=== PATIENT | male | born 1965 | race Two or more races ===

== ENCOUNTER 2024-05-17 11:24 | Emergency (ER) | payer OTHER ==
[~2024-05-17] VITALS: Ht 170.2 cm; Wt 79.5 kg
--- NOTE | 2024-05-17 11:44 | ED.PDOC ---
GI ASSESSMENT HPI Comments 59-year-old male presents with a chief complaint of abdominal pain x onset this morning with associated nausea. Patient states that his pain is localized to his periumbilical region, radiates to the epigastrium, mid chest and bilateral upper quadrants, describes as aching, and is intermittent in timing. Patient mentions that he has been experiencing these intermittent abdomen pain for the past few "months". Patient denies any injuries or trauma prior to onset of symptoms. Patient endorses having belching and dry heaving, but no active vomiting. Patient is pale in color, and rates his pain as "tolerable" at this time, stating he is more bothered by the nausea. No other symptoms or modifying factors present at this time. Chief Complaint: Abdominal Pain Time Seen by MD: 11:26 Reviewed Notes: Medications, Allergies Allergies: Coded Allergies: NO KNOWN ALLERGIES (Unverified , 05/17/24) Information Source: Patient Mode of Arrival: Ambulatory Timing: Hours Duration: Intermittent Prehospital treatment: None Quality: Aching Vomitus: None Stool: Normal Severity: Moderate Recent: None Recent Hx of: None Pain Location: Periumbilical Associated sign and symptoms: Nausea, Abdominal Pain Past Medical History PAST MEDICAL HISTORY: GERD, Thyroid Past Medical History (Other): H. pylori Surgical History (Other): Right Tibia Repair Family History Family History: Reviewed,noncontributory to illness Social History Smoker: Non-Smoker Alcohol: Denies ETOH Use Drugs: Denies Drug Use Lives In: Home Constitutional: denies: chills, diaphoresis, fatigue, fever, malaise, sweats, weakness, others EENTM: denies: blurred vision, double vision, ear bleeding, ear discharge, ear drainage, ear pain, ear ringing, eye pain, eye redness, hearing loss, mouth pain, mouth swelling, nasal discharge, nose bleeding, nose congestion, nose pain, photophobia, tearing, throat pain, throat swelling, voice changes, others Respiratory: denies: cough, hemoptysis, orthopnea, SOB at rest, shortness of breath, SOB with excertion, stridor, wheezing, others Cardiovascular: denies: chest pain, dizzy spells, diaphoresis, Dyspnea on exertion, edema, irregular heart beat, left arm pain, lightheadedness, palpitations, PND, syncope, others Gastrointestinal: reports: abdominal pain, nausea; denies: abdomen distended, blood streaked bowels, constipated, diarrhea, dysphagia, difficulty swallowing, hematemesis, melena, poor appetite, poor fluid intake, rectal bleeding, rectal pain, vomiting, others Genitourinary: denies: burning, dysuria, flank pain, frequency, hematuria, incontinence, penile discharge, penile sore, pain, testicle pain, testicle swelling, urgency, others Neurological: denies: dizziness, fainting, headache, left sided numbness, left sided weakness, numbness, paresthesia, pre-existing deficit, right sided numbness, right sided weakness, seizure, speech problems, tingling, tremors, weakness, others Musculoskeletal: denies: back pain, gout, joint pain, joint swelling, muscle pain, muscle stiffness, neck pain, others Integumetry: denies: bruises, change in color, change in hair/nails, dryness, laceration, lesions, lumps, rash, wounds, others Allergic/Immunocompromised: denies: Difficulty Healing, Frequent Infections, Hives, Itching, others Hematologic/Lymphatic: denies: anemia, blood clots, easy bleeding, easy bruising, swollen glands, others Endocrine: denies: excessive hunger, excessive sweating, excessive thirst, excessive urination, flushing, intolerance to cold, intolerance to heat, unexplained weight gain, unexplained weight loss, others Psychiatric: denies: anxiety, bipolar disorder, depression, hopeless, panic disorder, schizophrenia, sleepless, suicidal, others All Other Systems: Reviewed and Negative Physical Exam General Appearance: Mild Distress HEENT: Other (Moist mucous membranes. Otherwise unremarkable.) Neck: Full Range of Motion, Normal Inspection Respiratory: No Accessory Muscle Use, No Respiratory Distress Cardiovascular: Regular Rate/Rhythm Breast Exam: Deferred Gastrointestinal: Epigastric, LUQ, No Pulsatile Mass, RUQ, Soft, Tenderness Genitalia: Deferred Pelvic: Deferred Rectal: Deferred Extremities: Normal inspection, Normal range of motion, No pedal edema Neurologic: Alert (Oriented x4), Normal Affect, Normal Mood, Other (Ambulatory without difficulty. No gross focal deficit.) Cerebellar Function: NOT DONE Reflexes: NOT DONE Skin: Dry, Pallor, Warm Lymphatic: NOT DONE EKG EKG : Comments Sinus rhythm, rate 90, normal intervals, normal axis, normal QRS, anteroseptal T inversion with other nonspecific T changes. Was a procedure done? Was a procedure done?: No GI differential Dx Differential Diagnosis: Angina/UT, Gastritis/PUD, Gastroenteritis, Hepatitis, Inflammatory BD, Pancreatitis, Dehydration, Electrolyte Imbalance, Food Po isoning, Bacterial, Viral, Stress Ulcer X-Ray, Labs, Meds, VS Vital Signs Date Time Temp Pulse Resp B/P (MAP) Pulse Ox O2 Delivery O2 Flow Rate FiO2 05/17/24 14:28 90 13 114/68 (83) 99 05/17/24 14:17 90 13 114/68 05/17/24 12:38 95 05/17/24 12:23 88 16 128/81 05/17/24 11:59 Room Air* 0 21 05/17/24 11:37 90 05/17/24 11:36 94 22 127/78 (94) 94 05/17/24 11:25 97.6 91 20 122/78 (93) 95 Lab Test 05/17/24 12:57 05/17/24 11:48 Range/Units Troponin I High Sensitivity < 3 L < 3 L </=54 ng/L White Blood Count 13.3 H 4.4-10.8 10^3/uL Red Blood Count 4.65 4.5-5.90 10^6/uL Hemoglobin 14.4 13.5-17.5 g/dL Hematocrit 42.7 41.0-53.0 % Mean Corpuscular Volume 91.9 80.0-100.0 fL Mean Corpuscular Hemoglobin 31.0 28.0-32.0 pg Mean Corpuscular Hemoglobin Concent 33.7 32.0-36.0 g/dL Red Cell Distribution Width 12.7 11.8-14.3 % Platelet Count 212 140-450 10^3/uL Mean Platelet Volume 8.7 6.9-10.8 fL Neutrophils (%) (Auto) 85.9 H 37.0-80.0 % Lymphocytes (%) (Auto) 8.0 L 10.0-50.0 % Monocytes (%) (Auto) 5.1 0.0-12.0 % Eosinophils (%) (Auto) 0.7 0.0-7.0 % Basophils (%) (Auto) 0.3 0.0-2.0 % Neutrophils # (Auto) 11.5 H 1.6-8.6 10 ^3/uL Lymphocytes # (Auto) 1.1 0.4-5.4 10 ^3/uL Monocytes # (Auto) 0.7 0-1.3 10 ^3/uL Eosinophils # (Auto) 0.1 0-0.8 10 ^3/uL Basophils # (Auto) 0 0-0.2 10 ^3/uL Nucleated Red Blood Cells 0.0 % Sodium Level 139 136-145 mmol/L Potassium Level 3.9 3.5-5.1 mmol/L Chloride Level 106 98-107 mmol/L Carbon Dioxide Level 25 20-31 mmol/L Anion Gap 8 5-15 Blood Urea Nitrogen 22 9-23 mg/dL Creatinine 1.02 0.700-1.30 mg/dL Glomerular Filtration Rate Calc 84 >90 mL/min BUN/Creatinine Ratio 21.6 H 10.0-20.0 Serum Glucose 101 74-106 mg/dL Lactic Acid Level 0.9 0.4-2.0 mmol/L Calcium Level 10.1 8.7-10.4 mg/dL Total Bilirubin 0.9 0.2-1.0 mg/dL Aspartate Amino Transferase (AST) 16 13-40 U/L Alanine Aminotransferase (ALT) 20 7-40 U/L Alkaline Phosphatase 62 46-116 U/L Total Protein 7.8 5.7-8.2 g/dL Albumin 4.7 3.2-4.8 g/dL Lipase 86 H 12-53 U/L Current Medications Medications (Trade) Dose Ordered Sig/Esther Route Start Time Stop Time Status Last Admin Morphine Sulfate 4 mg ONCE ONCE IV 05/17/24 11:30 05/17/24 11:35 DC 05/17/24 12:23 Ondansetron HCl (Zofran) 4 mg ONCE ONCE IV 05/17/24 11:30 05/17/24 11:35 DC 05/17/24 12:24 Pantoprazole Sodium (Protonix) 40 mg ONCE ONCE IV 05/17/24 11:30 05/17/24 11:35 DC 05/17/24 12:24 Sodium Chloride 1,000 ml @ 1,000 mls/hr Q1H ONCE IV 05/17/24 11:30 05/17/24 12:29 DC 05/17/24 12:24 Sucralfate (Carafate Susp) 1 gm ONCE ONCE PO 05/17/24 13:30 05/17/24 13:31 DC 05/17/24 14:03 PROCEDURE(s): ABPL - CT AB PEL WO CON-NO ORAL OR IV REASON: upper abd pain ORDER NUMBER(s): [id number], ACCESSION NUMBER(s): [id number] CT ABDOMEN AND PELVIS WITHOUT CONTRAST CLINICAL HISTORY: upper abd pain TECHNIQUE: Multiple contiguous axial images of the abdomen and pelvis without intravenous contrast. The images were reformatted degenerate coronal and sagittal reconstructions. All CT scans at this medical facility are performed using dose modulation techniques as appropriate to a performed exam including the following:Automated exposure control was utilized; adjustment of the MA and/or KV according to patient size; and use of iterative reconstruction technique. Radiation Dose Information: CT Dose: CTDI volume is 9 mGy. Dose-length product is 548 mGy*cm Comparison: None FINDINGS: Evaluation of the abdomen and pelvis is limited without intravenous contrast. The liver, gallbladder, pancreas, kidneys, adrenal glands, and spleen appear within normal limits. There is no gross evidence of abdominal lymphadenopathy. There is no free fluid or free air. The stomach grossly appears unremarkable. The small and large bowel loops demonstrate normal caliber. There is a normal air-filled appendix seen in the right lower quadrant abdomen. The abdominal aorta and IVC appear within normal limits. The bladder appears unremarkable for the degree of distention. Pelvic organ appears within normal limits. There is no gross evidence of a pelvic mass. There is no free fluid collection. Lung bases are clear. There is no acute osseous abnormality. IMPRESSION: 1. There is no acute process in the abdomen and pelvis. HS:Y X-Ray, Labs, Meds, VS Comment 59-year-old male with a history of GERD and hypothyroidism presenting with upper abdominal pain, nausea and dry heaving. Vitals unremarkable Exam remarkable for epigastric and bilateral upper quadrant tenderness to palpation. No tenderness to percussion. Rhythm strip independently interpreted by me: Sinus rhythm, rate 90, no ectopy. CT abdomen and pelvis: IMPRESSION: 1. There is no acute process in the abdomen and pelvis. CBC remarkable for WBC 13 0.3, differential shows a left shift,, CMP and troponin unremarkable for any abnormality of acute significance. Lipase elevated at 86. Patient treated with the following in the ED: 1 L 0.9 normal saline IV bolus, Zofran 4 mg IV, morphine 4 mg IV, Protonix 40 mg IV, Carafate 1 g p.o. On re-evaluation, patient states he feels better. Vitals are stable. Hospitalization was considered, however patient had rapid improvement of symptoms with treatment in the ED, and I no longer feel hospitalization is necessary. Patient has been in contact with Dr. Tamayo and Dr. Loyd. He will arrange for outpatient EGD and will start Carafate and omeprazole at home. Time of 1ST Reevaluation: 11:56 Reevaluation 1ST: Unchanged Time of 2ND Reevaluation: 14:43 Reevaluation 2ND: Improved Patient Education/Counseling: Diagnosis, Treatment, Prognosis Family Education/Counseling: No Family Present Departure 1 Departure Time of Disposition: 14:43 Impression: Primary Impression: Abdominal pain Qualified Codes: R10.10 - Upper abdominal pain, unspecified Additional Impression: Elevated lipase Disposition: 01 HOME / SELF CARE / HOMELESS Condition: Stable Discharged With: Self Critical Care Note Critical Care Time?: No Stability Stability form required: No Heart Score Heart Score: Heart Score Response (Comments) Value History N/A 0 EKG N/A 0 Age N/A 0 Risk Factors N/A 0 Troponin N/A 0 Total 0 I personally scribed for VIKTORIA MORIN MD ([email or web address] on 05/17/24 at 11:44. Electronically submitted by Graham Leslie ([email or web address]). VIKTORIA MORIN MD May 17, 2024 11:44
[2024-05-17 12:06] LABS: Basophils # (auto) 0 10 ^3/uL (0-0.2); Basophils % (auto) 0.3 % (0.0-2.0); Eosinophils # (auto) 0.1 10 ^3/uL (0-0.8); Eosinophils % (auto) 0.7 % (0.0-7.0); Hematocrit 42.7 % (41.0-53.0); Hemoglobin 14.4 g/dL (13.5-17.5); Lymphocytes # (auto) 1.1 10 ^3/uL (0.4-5.4); Mean Corpuscular Hgb Conc. 33.7 g/dL (32.0-36.0); Mean Corpuscular Volume 91.9 fL (80.0-100.0); Monocytes # (auto) 0.7 10 ^3/uL (0-1.3); Monocytes % (auto) 5.1 % (0.0-12.0); Neutrophils # (auto) 11.5 10 ^3/uL (1.6-8.6); Neutrophils % (auto) 85.9 % (37.0-80.0); Platelet Count (auto) 212 10^3/uL (140-450); Red Blood Cells 4.65 10^6/uL (4.5-5.90); Red Cell Distribution Width 12.7 % (11.8-14.3); White Blood Cell 13.3 10^3/uL (4.4-10.8)
--- NOTE | 2024-05-17 12:17 | DVH ---
CT ABDOMEN AND PELVIS WITHOUT CONTRAST CLINICAL HISTORY: upper abd pain TECHNIQUE: Multiple contiguous axial images of the abdomen and pelvis without intravenous contrast. The images were reformatted degenerate coronal and sagittal reconstructions. All CT scans at this medical facility are performed using dose modulation techniques as appropriate t o a performed exam including the following:Automated exposure control was utilized; adjustment of the MA and/or KV according to patient size; and use of iterative reconstruction technique. Radiation Dose Information: CT Dose: CTDI volume is 9 mGy. Dose-length product is 548 mGy*cm Comparison: None FINDINGS: Evaluation of the abdomen and pelvis is limited without intravenous contrast. The liver, gallbladder, pancreas, kidneys, adrenal glands, and spleen appear within normal limits. There is no gross evidence of abdominal lymphadenopathy. There is no free fluid or free air. The stomach grossly appears unremarkable. The small and large bowel loops demonstrate normal caliber . There is a normal air-filled appendix seen in the right lower quadrant abdomen. The abdominal aorta and IVC appear within normal limits. The bladder appears unremarkable for the degree of distention. Pelvic organ appears within normal tenorio its. There is no gross evidence of a pelvic mass. There is no free fluid collection. Lung bases are clear. There is no acute osseous abnormality. IMPRESSION: 1. There is no acute process in the abdomen and pelvis. HS:Y
[2024-05-17] MEDS: MORPHINE SULFATE 4 MG/ML SYR/VIAL IV ONE (12:23)
[2024-05-17] MEDS: PANTOPRAZOLE 40 MG/10 ML VIAL INJ IV ONE (12:24)
[2024-05-17] MEDS: ONDANSETRON HCL 4 MG/2 ML VIAL IV ONE (12:24)
[2024-05-17] MEDS: SODIUM CHLORIDE 0.9% 1,000 ML IV ONE (12:24)
[2024-05-17 12:25] LABS: Alanine Aminotransferase 20 U/L (7-40); Albumin 4.7 g/dL (3.2-4.8); Alkaline Phosphatase 62 U/L (46-116); Anion Gap 8 (5-15); Aspartate Aminotransferase 16 U/L (13-40); BUN/Creatinine Ratio 21.6 (10.0-20.0); Bilirubin, Total 0.9 mg/dL (0.2-1.0); Blood Urea Nitrogen 22 mg/dL (9-23); Calcium 10.1 mg/dL (8.7-10.4); Carbon Dioxide 25 mmol/L (20-31); Chloride 106 mmol/L (98-107); Glucose 101 mg/dL (74-106); Potassium 3.9 mmol/L (3.5-5.1); Sodium 139 mmol/L (136-145); Total Protein 7.8 g/dL (5.7-8.2)
[2024-05-17 13:44] LABS: Lipase 86 U/L (12-53)
[2024-05-17] MEDS: SUCRALFATE 1 GM/10 ML ORAL SUSP PO ONE (14:03)
--- NOTE | 2024-05-17 14:10 | ECG ---
[facility], [place] Test Date: 2024-05-17 Test Time: 11:37:35 Pat Name: DEANN ZAVALA Department: ER Room: Gender: M Nurseryman Assistant: YEMI : 1965 Requested By: VIKTORIA CHARLES Order Number: [id number] Reading MD: Measurements Intervals [place] Rate: 90 P: 87 IL: 134 QRS: 87 QRSD: 87 T: 15 QT: 340 QTc: 416 Interpretive Statements Sinus rhythm Borderline right axis deviation Borderline T abnormalities, anterior leads Please click the below link to view image of tracing.
[2024-05-17 14:28] VITALS: BP 114/68; PULSE 90; RESP 13; O2SAT 99
--- NOTE | 2024-05-17 20:46 | DVHINCON2 ---
Date of service: May 17, 2024 (Late entryPatient seen at bedside ER three at 1:00 p.m.) Referring Physician Dr. Jordan Reason for Consultation Epigastric and atypical chest pain and GERD History of Present Illness 59-year-old male presents with a chief complaint of abdominal pain x onset this morning with associated nausea. Patient states that his pain is localized to his periumbilical region, radiates to the epigastrium, mid chest and bilateral upper quadrants, describes as aching, and is intermittent in timing. Patient mentions that he has been experiencing these intermittent abdomen pain for the past few "months". Patient denies any injuries or trauma prior to onset of symptoms. Patient endorses having belching and dry heaving, but no active vomiting. Patient was feeling better when I saw him in the ER. He stated his pain had resolved. He has been taking omeprazole daily for GERD symptoms and needs to take a moderate amount of Tums on a daily basis. His last endoscopy was over 10 years ago and he had a history of H.pylori that was treated. He denied any change in his routine, recent travel or change in medication or dietary change. His symptoms started last night but were aggravated after his light breakfast this morning. Past Medical History Hypothyroidism GERD Past Surgical History Right leg surgery Allergies: Coded Allergies: NO KNOWN ALLERGIES (Unverified , 05/17/24) Vital Signs Vital Signs Date Time Temp Pulse Resp B/P (MAP) Pulse Ox O2 Delivery O2 Flow Rate FiO2 05/17/24 14:28 90 13 114/68 (83) 99 05/17/24 11:59 Room Air* 0 21 05/17/24 11:25 97.6 Physical Exam General Appearance: No Distress; awake and alert x4 HEENT: JACQUE; EOMI intact Respiratory: No Respiratory Distress Cardiovascular: Regular Rate/Rhythm Gastrointestinal: Minimal residual tenderness during my examination, nondistended Extremities: Normal inspection, Normal range of motion, No pedal edema Neurologic: Alert (Oriented x4), Normal Affect, Normal Mood, Other (Ambulatory without difficulty. No gross focal deficit.) Labs/Diagnostic Data Labs Test 05/17/24 12:57 05/17/24 11:48 Range/Units Troponin I High Sensitivity < 3 L </=54 ng/L White Blood Count 13.3 H 4.4-10.8 10^3/uL Red Blood Count 4.65 4.5-5.90 10^6/uL Hemoglobin 14.4 13.5-17.5 g/dL Hematocrit 42.7 41.0-53.0 % Mean Corpuscular Volume 91.9 80.0-100.0 fL Mean Corpuscular Hemoglobin 31.0 28.0-32.0 pg Mean Corpuscular Hemoglobin Concent 33.7 32.0-36.0 g/dL Red Cell Distribution Width 12.7 11.8-14.3 % Platelet Count 212 140-450 10^3/uL Mean Platelet Volume 8.7 6.9-10.8 fL Neutrophils (%) (Auto) 85.9 H 37.0-80.0 % Lymphocytes (%) (Auto) 8.0 L 10.0-50.0 % Monocytes (%) (Auto) 5.1 0.0-12.0 % Eosinophils (%) (Auto) 0.7 0.0-7.0 % Basophils (%) (Auto) 0.3 0.0-2.0 % Neutrophils # (Auto) 11.5 H 1.6-8.6 10 ^3/uL Lymphocytes # (Auto) 1.1 0.4-5.4 10 ^3/uL Monocytes # (Auto) 0.7 0-1.3 10 ^3/uL Eosinophils # (Auto) 0.1 0-0.8 10 ^3/uL Basophils # (Auto) 0 0-0.2 10 ^3/uL Nucleated Red Blood Cells 0.0 % Sodium Level 139 136-145 mmol/L Potassium Level 3.9 3.5-5.1 mmol/L Chloride Level 106 98-107 mmol/L Carbon Dioxide Level 25 20-31 mmol/L Anion Gap 8 5-15 Blood Urea Nitrogen 22 9-23 mg/dL Creatinine 1.02 0.700-1.30 mg/dL Glomerular Filtration Rate Calc 84 >90 mL/min BUN/Creatinine Ratio 21.6 H 10.0-20.0 Serum Glucose 101 74-106 mg/dL Lactic Acid Level 0.9 0.4-2.0 mmol/L Calcium Level 10.1 8.7-10.4 mg/dL Total Bilirubin 0.9 0.2-1.0 mg/dL Aspartate Amino Transferase (AST) 16 13-40 U/L Alanine Aminotransferase (ALT) 20 7-40 U/L Alkaline Phosphatase 62 46-116 U/L Total Protein 7.8 5.7-8.2 g/dL Albumin 4.7 3.2-4.8 g/dL Lipase 86 H 12-53 U/L ABD PELVIC CT IMPRESSION: 1. There is no acute process in the abdomen and pelvis. Problems(with codes): (1) Atypical chest pain (2) GERD (gastroesophageal reflux disease) (3) Elevated lipase (4) Abdominal pain Plan/Recommendation Assessment plan EKG showed nonspecific T-wave changes, serial troponins were negative Nausea epigastric pain and atypical chest pain with mild pancreatitis but normal liver enzymes ;rule out gallstones;possible passage of sludge or stone I had tentatively planned to do an endoscopy this afternoon to rule out peptic ulcer disease rule out GERD; H.pylori gastritis however the patient had eaten breakfast and anesthesia doctor recommended deferring until tomorrow Patient is tentatively scheduled for an EGD at 7:00 a.m. on 05/18/2024 At the same time I would recommend getting a gallbladder ultrasound Avoid aspirin NSAIDs Clear liquid diet today Patient was given a dose of Carafate and IV ppi Zofran prn for nausea Patient stated he was feeling better and was thinking about going home tonight He was counseled to return to the ER if symptoms recur and to keep his scheduled endoscopy appointment tomorrow morning if possible Addendum Patient was discharged home at about 5:00 p.m. because he was feeling better Telephone communication at about 845 patient has low-grade fever COVID and flu tests were negative Patient would like to cancel the EGD schedule in the morning and we will defer it until a later time when he feels better Plan discussed with: Patient, Other (Dr. Jordan) BRENDA RANDOLPH MD May 17, 2024 20:45
== END 2024-05-17 15:11 | disposition home or self-care (01) ==
LOC: ER 11:33 → EEVIPCON 11:33 → ER 15:01
DX: R10.33 Periumbilical pain (principal); R74.8 Abnormal levels of other serum enzymes; K21.9 Gastro-esophageal reflux disease without esophagitis; E03.9 Hypothyroidism, unspecified; Z98.890 Other specified postprocedural states
CPT/HCPCS: 36415; 74176; 80053; 83605; 83690; 84484; 85025; 93005; 96361; 96374; 96375; 99285; J2270; J2405; J2470; J7030